=== PATIENT | female | born 1985 | race Caucasian/White ===

== ENCOUNTER 2022-12-12 07:06 | Emergency (ER) | payer OTHER, SELFPAY ==
[2022-12-12 07:10] VITALS: BP 129/85; PULSE 71; RESP 16; TEMP 36.8; O2SAT 97; BMI 20.4
--- NOTE | 2022-12-12 07:15 | ED_ITS ---
HPI - Dental/Oral General Chief complaint: Dental/Oral Stated complaint: TOOTHPAIN Time Seen by Provider: 12/12/22 07:14 Source: patient Mode of arrival: walk-in History of Present Illness HPI Narrative: patient's here for swelling of her face and discomfort in the left lower jaw. She's had abscesses off and on since June. Unfortunately the is not able to secure a dentist or oral surgeon. She has ALLERGIES to penicillin. She is not ALLERGIC to codeine products. She's not had fever shakes or chills. 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 Does have external swelling around the left lower mandible. Otherwise airways completely normal. He is in mild discomfort Constitutional Vital Signs - 24 hr 12/12/22 07:10 Temperature 98.3 F Pulse Rate [Monitor] 71 Respiratory Rate 16 Blood Pressure [Right Arm] 129/85 H Pulse Oximetry 97 Oxygen Delivery Method Room Air Documenting provider has reviewed patient's vital signs: yes Neck & C-Spine Common normals: full ROM, no lymphadenopathy, supple and no meningeal signs Other: airways widely patent. She has a soft tissue swelling but no pointing abscess in the oral cavity on the lower left molar. Several of her other teeth are carious but no abscess formation at this ttime. Floor the mouth tongue and uvula are otherwise normal Course Vital Signs Vital signs: Vital Signs Temperature 98.3 F 12/12/22 07:10 Pulse Rate 71 12/12/22 07:10 Respiratory Rate 16 12/12/22 07:10 Blood Pressure 129/85 H 12/12/22 07:10 Pulse Oximetry 97 12/12/22 07:10 Oxygen Delivery Method Room Air 12/12/22 07:10 Temperature 98.3 F 12/12/22 07:10 Pulse Rate 71 12/12/22 07:10 Respiratory Rate 16 12/12/22 07:10 Blood Pressure 129/85 H 12/12/22 07:10 Pulse Oximetry 97 12/12/22 07:10 Oxygen Delivery Method Room Air 12/12/22 07:10 MDM - Dental/Oral MDM Narrative Medical decision making narrative: no airway compromise with an otherwise uncomplicated dental infection that is been recurrent. She is requesting oral clindamycin in the liquid form. I referred her to our local dental clinics and/or the [facility]. Differential Diagnosis Differential diagnosis: Likely dental abscess Discharge Plan Discharge Chief Complaint: Dental/Oral Clinical Impression: Dental caries, Toothache Time of Disposition Decision: 07:27 Mode of Transportation: Private Vehicle Instructions: Dental Abscess (ED), Toothache (ED) Referrals: Luiz Casper MD [Primary Care Provider] - 1 week
== END 2022-12-12 07:40 | disposition home or self-care (01) ==
LOC: ER 07:15
PROVIDERS: Emergency Provider Emergency Medicine Emergency Medical Services; PCP Family Medicine
DX: K02.9 Dental caries, unspecified (principal); K08.89 Other specified disorders of teeth and supporting structures
CPT/HCPCS: 99283